=== PATIENT | female | born 1995 | race Two or more races ===

== ENCOUNTER 2018-01-02 21:34 | Outpatient (CLI) | payer OTHER | END 2018-01-02 23:37 | disposition home or self-care (01) | LOC: LC 21:34 | PROVIDERS: ATTEND Obstetrics & Gynecology Gynecology | PROC: 4A1HXCZ Monitoring of Products of Conception, Cardiac Rate, External Approach (ICD-10-PCS; principal; 2018-01-02) | DX: O47.1 False labor at or after 37 completed weeks of gestation (principal); Z3A.39 39 weeks gestation of pregnancy | CPT/HCPCS: 59025 ==